=== PATIENT | male | born 1935 | race Two or more races ===

== ENCOUNTER 2017-04-24 15:20 | Emergency (ER) | payer MEDICARE, OTHER ==
[~2017-04-24] VITALS: Ht 167.6 cm; Wt 83.0 kg
[~2017-04-24 15:20] MED LIST: AMBIEN10 MG PO; ASPIR 8181 MG ORAL; BENADRYL25 MG ORAL; ENALAPRIL MALEA20 MG PO; GLUCOPHAGE500 MG PO; IBUPROFEN600 MG ORAL; INVOKANA100 MG PO; JANUVIA100 MG PO; METFORMIN HCL1000 M1 ORAL; NORCO 5-325 TA1 EACH PO; OMEPRAZOLE20 M2 ORAL; OXYBUTYNIN CHLOR5 M1 ORAL; PREDNISONE20 MG ORAL; RANITIDINE HCL150 MG ORAL; SIMVASTATIN10 MG PO; SOMA350 MG PO; VESICARE5 MG ORAL
[2017-04-24] MEDS ORDERED: Tetanus/Diptheria/Pertussis Vaccine 0.5ml Syr IM ONE (16:30)
[2017-04-24] MEDS ORDERED: Bacitracin Oint UD TOPIC ONE (16:30)
--- NOTE | 2017-04-24 16:34 | Emergency Room Report ---
History of Present Illness General Chief Complaint: Lower Extremity Injury Source: Patient Present Illness HPI 82-year-old male presents to the emergency department brought by daughter complaining of 10 out of 10 in severity left knee pain and swelling status post mechanical trip and fall earlier this morning. Patient denies loss of consciousness denies nausea vomiting or taking blood thinning medications. Patient states he has a history of diabetes, HTN and BPH. pt had hx of bilateral knee surgery denies knee replacement. Pt denies dizziness, cp, or palpations prior to fall. Patient denies bruising, however he reports open wound to the front of the left knee. Patient states pain is localized to the anterior and lateral aspect of the left knee. Patient states he does not know if he has instability as it hurts too much even put weight on his leg. Pain is exacerbated with walking. He denies neck or back pain.last tetanus Unknown. Denies numbness tingling or loss of sensation or gross motor movements of the extremities, incontinence of bowel or bladder. Denies CP, Palpitations, LOC, AMS , dizziness, Changes in Vision, Sensation, paresthesias, or a sudden severe headache. Allergies: Coded Allergies: No Known Allergies (Verified Allergy, Unknown, 06/17/07) Patient History Past Medical History: see triage record Past Surgical History: none Pertinent Family History: none Reviewed Nursing Documentation: PMH: Agreed, PSxH: Agreed Nursing Documentation-PM Past Medical History: No History, Except For Hx Cardiac Problems: Yes - high cholesterol Hx Hypertension: Yes Hx Diabetes: Yes - Type II DM Hx Cancer: No Hx Gastrointestinal Problems: Yes - Prostare problem Hx Neurological Problems: No Review of Systems All Other Systems: negative except mentioned in HPI Physical Exam Vital Signs Date Time Temp Pulse Resp B/P Pulse Ox O2 Delivery O2 Flow Rate FiO2 04/24/17 15:37 97.5 79 17 134/85 93 Room Air Sp02 EP Interpretation: reviewed, normal General Appearance: no apparent distress, alert, GCS 15, non-toxic Head: normocephalic, atraumatic Eyes: bilateral eye PERRL, bilateral eye normal inspection ENT: hearing grossly normal, normal voice Neck: full range of motion, no bony tend Respiratory: lungs clear, normal breath sounds, speaking full sentences Cardiovascular #1: regular rate, rhythm, no edema, normal capillary refill Cardiovascular #2: 2+ dorsalis pedis (R) - posterior tibialis 2+ and equal bilaterally, 2+ dorsalis pedis (L) Musculoskeletal: back normal, no calf tenderness, swelling - moderate swelling to the anterior medial aspect of the left knee, no bruises. Positive anterior drawer sign. , tender - ttp to the anterior and lateral left knee. Neurologic: alert, oriented x3, responsive, motor strength/tone normal, sensory intact Psychiatric: judgement/insight normal, memory normal, mood/affect normal Skin: normal color, no rash, warm/dry, well hydrated Medical Decision Making PA Attestation Dr. Branch is my supervising Physician whom patient management has been discussed with. Diagnostic Impression: Primary Impression: Abrasion Additional Impressions: Left knee sprain Qualified Codes: S83.92XA - Sprain of unspecified site of left knee, initial encounter Ligamentous laxity of left ankle ER Course Pt. presents to the ED c/o Left knee pain 10/10 in severity wit swelling, and abrasion s/p mechnical slip and fall POSITIVE ANTERIOR DRAWER SIGN Ddx considered but are not limited to Fracture, dislocation, contusion, Sprain/ Strain/Spasm, abrasion Vital signs: are WNL, pt. is afebrile H&PE are most consistent with musculoskeletal injury will perform imaging to r/ o fractures/dislocations. , Ligamentous injury suspected as pt. has positive anterior drawer sign. pt. NVI to the extremity. ORDERS: - X-ray Left knee 3 views - negative for fx, Dislocation, or significant soft tissue injury, per preliminary read in ED by Dr. Branch - interpretation is scribed by PA. ED INTERVENTIONS: - Mills PO - Tdap -Wound cleaning -Bacitracin is applied -knee immobilizer -pt. given walker. d/w pt. that he needs to follow up with ortho, and that advanced imaging such as MRI is warranted on an outpatient bases. d/w pt. to start by taking half dose of rx'd norco for severe pain, and if needed may take full dose. also d/w pt. that I will rx tylenol for mild pain, and that he can not take both medications at the same time, as both contain tylenol, reiterated with daughter who will be staying with him and both show verbal understanding and agreement with proposed treatment plan. d/w pt. to return to the ED with worsening or new symptoms. DISCHARGE: At this time pt. is stable for d/c to home. Will provide printed patient care instructions, and any necessary prescriptions. Care plan and follow up instructions have been discussed with the patient prior to discharge. Last Vital Signs Date Time Temp Pulse Resp B/P Pulse Ox O2 Delivery O2 Flow Rate FiO2 04/24/17 15:37 97.5 79 17 134/85 93 Room Air Disposition: HOME, SELF-CARE Condition: Stable Scripts Acetaminophen* (TYLENOL EXTRA STRENGTH*) 500 Mg Tablet 500 MG ORAL Q6H, #20 TAB 0 Refills Prov: Carey Antoine 04/24/17 Hydrocodone Bit/Acetaminophen 5-325* (NORCO 5-325*) 1 Each Tablet 1 TAB ORAL Q6H Y for For Pain, #9 TAB 0 Refills Prov: Carey Antoine 04/24/17 Referrals: NON PHYSICIAN (PCP) Patient Instructions: Combined Knee Ligament Sprain, Knee Sprain, [id number] Additional Instructions: Take medications as directed. Follow up with a SKE[employer] Y[employer] EXAMINER in 3-5 days, even if your symptoms have resolved. MRI is recommended. --Please review list of primary care clinics, if you do not already have a primary care provider Return sooner to ED if new symptoms occur, or current symptoms become worse. Do not drink alcohol, drive, or operate heavy machinery while taking Mills as this may cause drowsiness. - Please note that this Emergency Department Report was dictated using [employer] service technician technology software, occasionally this can lead to erroneous entry secondary to interpretation by the dictation equipment. Carey Antoine Apr 24, 2017 16:34
[2017-04-24] MEDS ORDERED: NORCO 5-325 TA1 EACH ORAL (16:57)
[2017-04-24] MEDS ORDERED: TYLENOL EXTRA500 MG ORAL (16:57)
--- NOTE | 2017-04-24 16:58 | Diagnostic Imaging Report ---
Indication: PAIN Technique: 3 views of the left knee Comparison: None Findings:There is degenerative narrowing of the medial and lateral and patellofemoral joint compartments. There is considerable degenerative proliferative change and multiple intra-articular loose bodies. No acute fractures. No dislocations. No suprapatellar effusion. Impression:Degenerative changes. Intra-articular loose bodies. No acute bony trauma
[2017-04-24] MEDS ORDERED: Norco 5mg/325mg tab ORAL ONE (17:00)
[2017-04-24 17:46] VITALS: BP 130/82
== END 2017-04-24 17:55 | disposition home or self-care (01) ==
LOC: EMR 16:10
DX: S83.92XA Sprain of unspecified site of left knee, initial encounter (principal); Z23 Encounter for immunization; M24.272 Disorder of ligament, left ankle; S80.212A Abrasion, left knee, initial encounter; W01.0XXA Fall on same level from slipping, tripping and stumbling without subsequent striking against object, initial encounter; Y93.9 Activity, unspecified; Y92.9 Unspecified place or not applicable; I10 Essential (primary) hypertension; E11.9 Type 2 diabetes mellitus without complications
CPT/HCPCS: 29530; 90471; 90715; 96372

== ENCOUNTER 2017-10-22 09:18 | Emergency (ER) | payer MEDICARE, OTHER ==
[~2017-10-22] VITALS: Ht 167.6 cm; Wt 83.5 kg
[~2017-10-22 09:18] MED LIST changes: +NORCO 5-325 TA1 EACH ORAL; +TYLENOL EXTRA500 MG ORAL
[2017-10-22] MEDS ORDERED: BENADRYL ALLERG25 M1 PO (09:58)
[2017-10-22] MEDS ORDERED: HydrOXYzine tab 25 MG TAB ORAL ONE (10:00)
[2017-10-22 10:07] VITALS: BP 149/79
[2017-10-22 10:21] VITALS: BP 149/79
--- NOTE | 2017-10-22 13:11 | Emergency Room Report ---
History of Present Illness General Chief Complaint: Skin Rash/Abscess Source: Patient Present Illness HPI 82-year-old male, no significant past medical history, presenting with intermittent itchy rash on arms and abdomen. No fever no chills. No throat swelling or shortness of breath. States that he has been taking loratadine without any relief Allergies: Coded Allergies: No Known Allergies (Verified Allergy, Unknown, 06/17/07) Patient History Past Medical History: see triage record Past Surgical History: none Pertinent Family History: none Reviewed Nursing Documentation: PMH: Agreed, PSxH: Agreed Nursing Documentation-PMH Hx Cardiac Problems: Yes - high cholesterol Hx Hypertension: Yes Hx Diabetes: Yes Hx Cancer: No Hx Gastrointestinal Problems: Yes - Prostare problem Hx Neurological Problems: No Review of Systems All Other Systems: negative except mentioned in HPI Physical Exam Vital Signs Date Time Temp Pulse Resp B/P (MAP) Pulse Ox O2 Delivery O2 Flow Rate FiO2 10/22/17 09:26 97.4 71 18 163/85 98 Room Air 97.3 Sp02 EP Interpretation: reviewed, normal General Appearance: normal inspection, well appearing, no apparent distress, alert, GCS 15, non-toxic Head: normocephalic, atraumatic Eyes: bilateral eye normal inspection, bilateral eye PERRL, bilateral eye EOMI ENT: normal ENT inspection, normal pharynx, normal voice, moist mucus membranes Neck: normal inspection, full range of motion, supple Respiratory: normal inspection, lungs clear, normal breath sounds, no respiratory distress, no retraction, no wheezing, speaking full sentences, chest symmetrical Cardiovascular #1: normal inspection, regular rate, rhythm, no edema, normal capillary refill Cardiovascular #2: 2+ radial (R), 2+ radial (L) Gastrointestinal: normal inspection, non tender, soft, non-distended, no guarding Genitourinary: no CVA tenderness Musculoskeletal: normal inspection, back normal, normal range of motion, non- tender Neurologic: normal inspection, alert, oriented x3, responsive, motor strength/ tone normal, sensory intact, normal gait, speech normal Psychiatric: normal inspection, judgement/insight normal, memory normal Skin: other - Very slight barely visible erythematous rash on arms, no rash in the interim webs of the fingers, does not appear to be scabies, nontender Medical Decision Making Diagnostic Impression: Primary Impression: Pruritic rash ER Course 82-year-old male with pruritus DDX: allergic rash Plan: Benadryl ER course: Patient has remained stable during ED stay. Feeling much better after medication Disposition: Patient is to be discharged to home. Prescriptions given are Benadryl Patient is instructed to follow up with their primary care doctor within 5 days. Strict return precautions discussed with patient such as fever, chills, SOB, nausea, vomiting, which may indicate severe illness. Patient verbalizes understanding and agrees with plan. Please note that this Emergency Department Report was dictated using [employer] Pharm[employer]contractor field hauling technology software, occasionally this can lead to erroneous entry secondary to interpretation by the dictation equipment Last Vital Signs Date Time Temp Pulse Resp B/P (MAP) Pulse Ox O2 Delivery O2 Flow Rate FiO2 10/22/17 10:21 97.6 74 19 149/79 100 Room Air 97.6 Disposition: HOME, SELF-CARE Condition: Improved Scripts Diphenhydramine Hcl (BENADRYL ALLERGY) 25 Mg Tablet 25 MG PO Q6H, #30 TAB Prov: Nancy Dent M.D. 10/22/17 Patient Instructions: Rash Additional Instructions: PLEASE FOLLOW UP WITH YOUR PRIMARY CARE DOCTOR Nancy Dent M.D. Oct 22, 2017 13:11
== END 2017-10-22 10:21 | disposition home or self-care (01) ==
LOC: EMR 09:40
DX: R21 Rash and other nonspecific skin eruption (principal); L29.9 Pruritus, unspecified; I10 Essential (primary) hypertension; E11.9 Type 2 diabetes mellitus without complications; E78.00 Pure hypercholesterolemia, unspecified
CPT/HCPCS: 99283

== ENCOUNTER 2017-11-28 10:36 | Emergency (ER) | payer MEDICARE, OTHER ==
[~2017-11-28] VITALS: Ht 167.6 cm; Wt 83.0 kg
[~2017-11-28 10:36] MED LIST changes: +BENADRYL ALLERG25 M1 PO
[2017-11-28] MEDS ORDERED: PREDNISONE20 MG ORAL (11:15)
[2017-11-28] MEDS ORDERED: ZANTAC150 MG ORAL (11:15)
[2017-11-28 11:18] VITALS: BP 133/82
[2017-11-28 11:25] VITALS: BP 133/82
--- NOTE | 2017-11-29 10:48 | Emergency Room Report ---
History of Present Illness General Chief Complaint: General Complaint Source: Patient Present Illness HPI Patient presents with complaints of diffuse itching Reports that this is been ongoing over the past 3-4 months Patient was seen here previously for similar complaint Since then he has recently seen his primary physician Has also seen a horticultural specialty grower Denies any change in medications he was given a cream however Denies any fevers He has seen the rash previously but none at this time Denies any abdominal pain denies any conjunctivitis Denies any pain in his joints Allergies: Coded Allergies: No Known Allergies (Verified Allergy, Unknown, 06/17/07) Patient History Past Medical History: see triage record Pertinent Family History: none Reviewed Nursing Documentation: PMH: Agreed; PSxH: Agreed Nursing Documentation-PMH Hx Cardiac Problems: Yes - high cholesterol Hx Hypertension: Yes Hx Diabetes: Yes Hx Cancer: No Hx Gastrointestinal Problems: Yes - Prostate problem Hx Neurological Problems: No Review of Systems All Other Systems: negative except mentioned in HPI Physical Exam Vital Signs Date Time Temp Pulse Resp B/P (MAP) Pulse Ox O2 Delivery O2 Flow Rate FiO2 11/28/17 10:44 98.0 80 21 161/72 97 Room Air 98.1 Sp02 EP Interpretation: reviewed, normal General Appearance: well appearing, no apparent distress Head: normocephalic, atraumatic Eyes: bilateral eye PERRL, bilateral eye EOMI ENT: hearing grossly normal, normal pharynx, TMs + canals normal, uvula midline Neck: full range of motion, supple, no meningismus, no bony tend Respiratory: lungs clear, normal breath sounds, no rhonchi, no respiratory distress, no retraction, no accessory muscle use Cardiovascular #1: normal peripheral pulses, regular rate, rhythm, no edema, no gallop, no JVD, no murmur Gastrointestinal: normal bowel sounds, non tender, soft, no mass, no organomegaly, non-distended, no guarding, no hernia, no pulsatile mass, no rebound Genitourinary: no CVA tenderness Musculoskeletal: normal inspection Neurologic: oriented x3, responsive, ambulance mechanic III-XII nml as tested, motor strength/ tone normal, sensory intact Psychiatric: mood/affect normal Skin: normal color, no rash, warm/dry, palpation normal Lymphatic: normal inspection, no adenopathy Medical Decision Making Diagnostic Impression: Primary Impression: Pruritic rash ER Course On patient's evaluation he is hemodynamically stable There is no obvious rash at this time Patient is on different medications Is being seen by dermatology Patient also has diabetes however was given low-dose steroids for a few days for the itching Given the lack of any obvious visual rash given the patient's chronicity after that he is appropriate for continued follow-up with dermatology and return with any changes Last Vital Signs Date Time Temp Pulse Resp B/P (MAP) Pulse Ox O2 Delivery O2 Flow Rate FiO2 11/28/17 11:25 98.6 81 16 133/82 99 Room Air 98.6 Status: unchanged Disposition: HOME, SELF-CARE Condition: Stable Scripts Ranitidine Hcl* (ZANTAC*) 150 Mg Tablet 150 MG ORAL DAILY, #20 TAB 0 Refills Prov: Nancy Hubbard DO 11/28/17 Prednisone* (PREDNISONE*) 20 Mg Tablet 20 MG ORAL DAILY, #5 TAB Prov: Nancy Hubbard DO 11/28/17 Referrals: EVERARDO LOUISE (PCP) Patient Instructions: Pruritus Additional Instructions: Patient is provided with the discharge instructions notified to follow up with primary doctor in the next 2-3 days otherwise return to the er with any worsening symptoms. Please note that this report is being documented using [employer] technology. This can lead to erroneous entry secondary to incorrect interpretation by the dictating instrument. Nancy Hubbard DO Nov 29, 2017 10:48
== END 2017-11-28 11:25 | disposition home or self-care (01) ==
LOC: EMR 10:55
DX: L29.9 Pruritus, unspecified (principal); I10 Essential (primary) hypertension; E11.9 Type 2 diabetes mellitus without complications
CPT/HCPCS: 99283

== ENCOUNTER 2018-03-25 09:00 | Outpatient (CLI) | payer MEDICARE, OTHER ==
[~2018-03-25] VITALS: Ht 165.1 cm; Wt 83.9 kg
[~2018-03-25 09:00] MED LIST changes: +ZANTAC150 MG ORAL
[2018-03-25 09:17] VITALS: BP 145/82
[2018-03-25] MEDS ORDERED: OMEPRAZOLE40 M1 ORAL (09:21)
[2018-03-25] MEDS ORDERED: CARAFATE1 G1 ORAL (09:21)
[2018-03-25] MEDS ORDERED: HYDROXYZINE HCL25 M1 PO (09:22)
--- NOTE | 2018-03-25 09:35 | GI Progress Note ---
Assessment/Plan Problems: (1) Weight loss ICD Codes: R63.4 - Abnormal weight loss SNOMED: 23554624, [id number] (2) Abdominal pain ICD Codes: R10.9 - Unspecified abdominal pain SNOMED: 76320161 (3) Nausea ICD Codes: R11.0 - Nausea SNOMED: 625701653 (4) muliple colon polyps (5) HP gastritis Status: stable Status Narrative Seen with Dr. Rivera. Assessment/Plan 4 lbs weight loss h/o of multiple colonic polyps EGD/colonoscopy scheduled 03-28-18. - CLD & (Nulytely/Suprep/Movi-Prep) prep instructions given and acknowledged by patient. - NPO @ CA day prior procedure explained. - labs to be drawn day of procedure >> CBC, CMP, CEA, CA19-9, Amylase/Lipase CTAP to be ordered for same time. The patient was seen and examined at bedside and all new and available data was reviewed in the patients chart. I agree with the above findings, impression and plan. (Patient seen earlier today. Signature stamp does not reflect patient encounter time.). - Nael Rivera MD Subjective Gastrointestinal/Abdominal: Reports: no symptoms Objective Last 24 Hour Vital Signs Date Time Temp Pulse Resp B/P (MAP) Pulse Ox O2 Delivery O2 Flow Rate FiO2 03/25/18 09:17 97.5 73 16 145/82 97 97.5 General Appearance: WD/WN, no apparent distress, alert Cardiovascular: normal rate Respiratory/Chest: normal breath sounds, no respiratory distress Abdominal Exam: normal bowel sounds, non tender, soft Extremities: normal range of motion, non-tender Ana Lilia Dalton CIRCULATING PROCESS INSPECTOR Mar 25, 2018 09:35
== END 2018-03-25 09:32 | disposition home or self-care (01) ==
LOC: PAN 09:00
DX: R63.4 Abnormal weight loss (principal); R10.9 Unspecified abdominal pain; R11.0 Nausea; K63.5 Polyp of colon
CPT/HCPCS: 99212

== ENCOUNTER 2018-03-28 07:39 | Day surgery (SDC) | payer MEDICARE, OTHER ==
[~2018-03-28] VITALS: Ht 167.6 cm; Wt 83.9 kg
[2018-03-28] VITALS (7 sets, daily range): BP systolic 94–141; BP diastolic 44–86
[~2018-03-28 07:39] MED LIST changes: +CARAFATE1 G1 ORAL; +HYDROXYZINE HCL25 M1 PO; +OMEPRAZOLE40 M1 ORAL
[2018-03-28 08:51] LABS: BASOPHILS % (AUTO) 1.3 % (0.0-2.0); EOSINOPHILS % (AUTO) 4.3 % (0.0-3.0); HEMATOCRIT 44.4 % (42.0-52.0); HEMOGLOBIN 15.5 G/DL (14.2-18.0); LYMPHOCYTES % (AUTO) 31.1 % (20.0-45.0); MEAN CORPUSCULAR VOLUME 91 FL (80-99); MONOCYTES % (AUTO) 10.1 % (1.0-10.0); NEUTROPHILS % (AUTO) 53.3 % (45.0-75.0); PLATELET COUNT 239 K/UL (150-450); RED BLOOD COUNT 4.88 M/UL (4.70-6.10); RED CELL DISTRIBUTION WIDTH 11.2 % (11.6-14.8); WHITE BLOOD COUNT 6.5 K/UL (4.8-10.8)
[2018-03-28 08:59] LABS: ANION GAP 6 mmol/L (5-15); BLOOD UREA NITROGEN 11 mg/dL (7-18); CALCIUM 9.1 MG/DL (8.5-10.1); CARBON DIOXIDE 30 MMOL/L (21-32); CHLORIDE 107 MMOL/L (98-107); CREATININE 0.9 MG/DL (0.55-1.30); POTASSIUM 4.1 MMOL/L (3.5-5.1); SODIUM 143 MMOL/L (136-145)
[2018-03-28 09:06] LABS: ALANINE AMINOTRANSFERASE 36 U/L (12-78); ALBUMIN 4.1 G/DL (3.4-5.0); ALBUMIN/GLOBULIN RATIO 1.2 (1.0-2.7); ALKALINE PHOSPHATASE 90 U/L (46-116); AMYLASE 70 U/L (25-115); ASPARTATE AMINO TRANSFERASE 35 U/L (15-37); BILIRUBIN,TOTAL 0.8 MG/DL (0.2-1.0)
--- NOTE | 2018-03-28 09:34 | Pre-Procedure Note/Attestation ---
Pre-Procedure Note/Attestation Complete Prior to Procedure Planned Procedure: not applicable Procedure Narrative: esophagogastroduodenoscopy and colonoscopy Indications for Procedure Pre-Operative Diagnosis: GERD, multiple colon polys Attestation I attest that I discussed the nature of the procedure; its benefits; risks and complications; and alternatives (and the risks and benefits of such alternatives ), prior to the procedure, with the patient (or the patient's legal vaccine customer representative). I attest that, if there was a reasonable possibility of needing a blood transfusion, the patient (or the patient's legal vaccine customer representative) was given the [facility] standardized written summary, pursuant to the Marek Fost[place] Blood Safety Act ([place] Health and Safety Code # 1645, as amended). I attest that I re-evaluated the patient just prior to the surgery and that there has been no change in the patient's H&P, except as documented below: Nael Rivera MD Mar 28, 2018 09:34
--- NOTE | 2018-03-28 09:35 | Short Stay Surgery H&P ---
History of Present Illness History of Present Illness Chief Complaint see recent office note HPI Osmar Horton is a 83 year old male who was admitted on for Multiple Colonic Polyps, Abdominal Pain, And Patient History Allergies: Coded Allergies: No Known Allergies (Verified Allergy, Unknown, 06/17/07) Medication History Scheduled Enalapril Maleate* (Enalapril Maleate*), 20 MG PO Q12HR, (Reported) Hydroxyzine Hcl (Hydroxyzine Hcl), 25 MG PO PRN, (Reported) Metformin Hcl* (Metformin Hcl*), 1,000 MG ORAL BID, (Reported) Omeprazole (Omeprazole), 40 MG ORAL DAILY, (Reported) Simvastatin (Zocor), 10 MG PO QHS, (Reported) Sucralfate* (Carafate*), 1 GM ORAL BID, (Reported) Discontinued Medications Acetaminophen* (Tylenol Extra Strength*), 500 MG ORAL Q6H Discontinued Reason: MD discontinued med Aspirin* (Aspir 81*), 81 MG ORAL DAILY, (Reported) Discontinued Reason: MD discontinued med Diphenhydramine Hcl (Benadryl Allergy), 25 MG PO Q6H Discontinued Reason: MD discontinued med Hydrocodone Bit/Acetaminophen 5-325* ([place] 5-325*), 1 TAB ORAL Q6H PRN for For Pain Discontinued Reason: MD discontinued med Prednisone* (Prednisone*), 20 MG ORAL DAILY Discontinued Reason: MD discontinued med Ranitidine Hcl* (Zantac*), 150 MG ORAL DAILY Discontinued Reason: MD discontinued med Physical Exam Vital Signs Last Vital Signs Date Time Temp Pulse Resp B/P (MAP) Pulse Ox O2 Delivery O2 Flow Rate FiO2 03/28/18 09:23 97.5 68 20 140/86 (104) 97 97.5 03/28/18 09:22 Room Air Labs Laboratory Tests Test 03/28/18 08:30 White Blood Count 6.5 K/UL (4.8-10.8) Red Blood Count 4.88 M/UL (4.70-6.10) Hemoglobin 15.5 G/DL (14.2-18.0) Hematocrit 44.4 % (42.0-52.0) Mean Corpuscular Volume 91 FL (80-99) Mean Corpuscular Hemoglobin 31.7 PG (27.0-31.0) H Mean Corpuscular Hemoglobin Concent 34.9 G/DL (32.0-36.0) Red Cell Distribution Width 11.2 % (11.6-14.8) L Platelet Count 239 K/UL (150-450) Mean Platelet Volume 7.1 FL (6.5-10.1) Neutrophils (%) (Auto) 53.3 % (45.0-75.0) Lymphocytes (%) (Auto) 31.1 % (20.0-45.0) Monocytes (%) (Auto) 10.1 % (1.0-10.0) H Eosinophils (%) (Auto) 4.3 % (0.0-3.0) H Basophils (%) (Auto) 1.3 % (0.0-2.0) Sodium Level 143 MMOL/L (136-145) Potassium Level 4.1 MMOL/L (3.5-5.1) Chloride Level 107 MMOL/L (98-107) Carbon Dioxide Level 30 MMOL/L (21-32) Anion Gap 6 mmol/L (5-15) Blood Urea Nitrogen 11 mg/dL (7-18) Creatinine 0.9 MG/DL (0.55-1.30) Estimat Glomerular Filtration Rate mL/min (>60) Glucose Level 165 MG/DL (74-106) H Calcium Level 9.1 MG/DL (8.5-10.1) Total Bilirubin 0.8 MG/DL (0.2-1.0) Aspartate Amino Transf (AST/SGOT) 35 U/L (15-37) Alanine Aminotransferase (ALT/SGPT) 36 U/L (12-78) Alkaline Phosphatase 90 U/L (46-116) Total Protein 7.6 G/DL (6.4-8.2) Albumin 4.1 G/DL (3.4-5.0) Globulin 3.5 g/dL Albumin/Globulin Ratio 1.2 (1.0-2.7) Amylase Level 70 U/L (25-115) Lipase 201 U/L (73-393) Carcinoembryonic Antigen Pending CA 19-9 Antigen Pending Plan Attestation Are the patient's medical conditions optimized for surgery? Nael Rivera MD Mar 28, 2018 09:35
[2018-03-28] MEDS ORDERED: LR 1000ml 1,000 ML IVLG SCH (09:52)
[2018-03-28] MEDS ORDERED: fentaNYL 100 mcg/2 mL IV PRN (10:00)
[2018-03-28] MEDS ORDERED: Metoclopramide 10mg/2ml Inj IVP PRN (10:00)
[2018-03-28] MEDS ORDERED: Norco 5mg/325mg tab ORAL PRN (10:00)
[2018-03-28] MEDS ORDERED: Labetalol 5mg/ml 20ml vial IV PRN (10:00)
[2018-03-28] MEDS ORDERED: Hydromorphone 0.5mg/0.5ml inj IVP PRN (10:00)
[2018-03-28] MEDS ORDERED: Atropine Inj 1mg/10ml Syr IV PRN (10:00)
[2018-03-28] MEDS ORDERED: Propofol 200mg/20ml IV ONE (10:00)
[2018-03-28] MEDS ORDERED: Midazolam 2mg/2ml Inj IVP PRN (10:00)
[2018-03-28] MEDS ORDERED: Lidocaine 1% MPF 10mg/ml 5ml ONE (10:00)
[2018-03-28] MEDS ORDERED: oxyCODONE HCL/Acetaminophen 5/325mg ORAL PRN (10:00)
[2018-03-28] MEDS ORDERED: DiphenhydrAMINE 50mg/ml Inj IVP PRN (10:00)
[2018-03-28] MEDS ORDERED: HYDROcodone/Acetamin 7.5/325 tab ORAL PRN (10:00)
[2018-03-28] MEDS ORDERED: LORazepam Inj 2mg/ml 1ml IV PRN (10:00)
[2018-03-28] MEDS ORDERED: LR 1000ml ONE (10:00)
[2018-03-28] MEDS ORDERED: Midazolam 2mg/2ml Inj ONE (10:00)
[2018-03-28] MEDS ORDERED: Ketorolac 30mg Inj IV PRN ×2 (10:00)
--- NOTE | 2018-03-28 10:00 | Anethesia Preoperative Eval ---
Anesthesia Pre-op PMH/ROS General Date of Evaluation: Mar 28, 2018 Time of Evaluation: 09:54 Anesthesiologist: Ron ASA Score: ASA 3 Mallampati Score Class I : Soft palate, uvula, fauces, pillars visible Class II: Soft palate, uvula, fauces visible Class III: Soft palate, base of uvula visible Class IV: Only hard plate visible Mallampati Classification: Class II Surgeon: Nicole Diagnosis: Abd Pain Surgical Procedure: EGD/Colonoscopy Anesthesia History: none Family History: no anesthesia problems Allergies: Coded Allergies: No Known Allergies (Verified Allergy, Unknown, 06/17/07) Medications: see eMAR Past Medical History Cardiovascular: Reports: HTN, other - HL Gastrointestinal/Genitourinary: Reports: GERD - Diverticulitis, other - UTI, BPH Endocrine: Reports: DM HEENT: Reports: cataract (L), cataract (R) PSxH Narrative: Cat Ext IOL Bilateral, L Knee Sx Anesthesia Pre-op Phys. Exam Physician Exam Last Vital Signs Date Time Temp Pulse Resp B/P (MAP) Pulse Ox O2 Delivery O2 Flow Rate FiO2 03/28/18 09:23 97.5 68 20 140/86 (104) 97 97.5 03/28/18 09:22 Room Air Constitutional: NAD Neurologic: CN 2-12 intact Cardiovascular: RRR Respiratory: CTA Gastrointestinal: S/NT/ND Airway Exam Mallampati Score: Class II MO: limited ROM: limited Teeth: missing, intact, broken Anesthesia Pre-op A/P Labs Hematology Test 03/28/18 08:30 White Blood Count 6.5 K/UL (4.8-10.8) Red Blood Count 4.88 M/UL (4.70-6.10) Hemoglobin 15.5 G/DL (14.2-18.0) Hematocrit 44.4 % (42.0-52.0) Mean Corpuscular Volume 91 FL (80-99) Mean Corpuscular Hemoglobin 31.7 PG (27.0-31.0) H Mean Corpuscular Hemoglobin Concent 34.9 G/DL (32.0-36.0) Red Cell Distribution Width 11.2 % (11.6-14.8) L Platelet Count 239 K/UL (150-450) Mean Platelet Volume 7.1 FL (6.5-10.1) Neutrophils (%) (Auto) 53.3 % (45.0-75.0) Lymphocytes (%) (Auto) 31.1 % (20.0-45.0) Monocytes (%) (Auto) 10.1 % (1.0-10.0) H Eosinophils (%) (Auto) 4.3 % (0.0-3.0) H Basophils (%) (Auto) 1.3 % (0.0-2.0) Chemistry Test 03/28/18 08:30 Sodium Level 143 MMOL/L (136-145) Potassium Level 4.1 MMOL/L (3.5-5.1) Chloride Level 107 MMOL/L (98-107) Carbon Dioxide Level 30 MMOL/L (21-32) Anion Gap 6 mmol/L (5-15) Blood Urea Nitrogen 11 mg/dL (7-18) Creatinine 0.9 MG/DL (0.55-1.30) Estimat Glomerular Filtration Rate mL/min (>60) Glucose Level 165 MG/DL (74-106) H Calcium Level 9.1 MG/DL (8.5-10.1) Total Bilirubin 0.8 MG/DL (0.2-1.0) Aspartate Amino Transf (AST/SGOT) 35 U/L (15-37) Alanine Aminotransferase (ALT/SGPT) 36 U/L (12-78) Alkaline Phosphatase 90 U/L (46-116) Total Protein 7.6 G/DL (6.4-8.2) Albumin 4.1 G/DL (3.4-5.0) Globulin 3.5 g/dL Albumin/Globulin Ratio 1.2 (1.0-2.7) Amylase Level 70 U/L (25-115) Lipase 201 U/L (73-393) Carcinoembryonic Antigen Pending CA 19-9 Antigen Pending Studies Pre-op Studies: EKG - LVH Risk Assessment & Plan Assessment: ASA 3 Plan: GA Status Change Before Surgery: Brad Terrazas MD Mar 28, 2018 10:00
--- NOTE | 2018-03-28 10:08 | Immediate Post-Op Evaluation ---
Immediate Post-Op Evalulation Immediate Post-Op Evalulation Procedure: EGD/Colonoscopy Date of Evaluation: Mar 28, 2018 Time of Evaluation: 10:54 IV Fluids: 300 NS Blood Products: 0 Estimated Blood Loss: 1 Urinary Output: 0 Blood Pressure Systolic: 76 Blood Pressure Diastolic: 46 Pulse Rate: 67 Respiratory Rate: 16 O2 Sat by Pulse Oximetry: 100 Temperature (Fahrenheit): 97.6 Pain Score (1-10): 2 Nausea: No Vomiting: No Complications 0 Patient Status: awake, reacts, patent, none Hydration Status: adequate Brad Velasquez MD Mar 28, 2018 10:08
--- NOTE | 2018-03-28 10:09 | 48 Hour Post Anesthesia Eval ---
Post Anesthesia Evaluation Procedure: EGD/Colonoscopy Date of Evaluation: Mar 28, 2018 Time of Evaluation: 13:06 Blood Pressure Systolic: 126 0: 78 Pulse Rate: 62 Respiratory Rate: 18 Temperature (Fahrenheit): 97.7 O2 Sat by Pulse Oximetry: 100 Airway: patent Nausea: No Vomiting: No Pain Intensity: 1 Hydration Status: adequate Cardiopulmonary Status: Stable Mental Status/LOC: patient returned to baseline Follow-up Care/Observations: 00 Post-Anesthesia Complications: 0 Follow-up care needed: ready to discharge Brad Velasquez MD Mar 28, 2018 10:09
--- NOTE | 2018-03-28 10:36 | Endoscopy Procedure Note ---
Endoscopy Procedure Note General Indication for Procedure: wt loss. GERD, multiple colon polyps Procedures Performed: EGD, colonoscopy Operative Findings/Diagnosis: 2 polyp Specimen: yes Pt Tolerated Procedure Well: Yes Estimated Blood Loss: none Anesthesia Anesthesiologist: saad Anesthesia: MAC Inserted Devices Implant(s) used?: No Quality Quality of Bowel Preparation: Good Did scope reach the cecum?: Yes Was there any complications?: No GI Core Measures 50 yrs or older w/o bx or poly: No 10yrs. F/U not recommended: Yes If not recommended, why?: Above average risk 10 yrs. F/U needed: Yes 18 years or older w/prev. colo: Yes <3yrs. since last colonoscopy: No Nael Rivera MD Mar 28, 2018 10:36
--- NOTE | 2018-03-28 11:45 | Procedure Note ---
DATE OF PROCEDURE: 03/28/2018 SURGEON: Nael Rivera M.D. ANESTHESIOLOGIST: Dr. Velasquez. REFERRING PHYSICIAN: Erwin Calderon M.D. PROCEDURE: Upper endoscopy with biopsy and colonoscopy with biopsy. ANESTHESIA: Per Dr. Velaqsuez. INSTRUMENT: Olympus adult flexible upper endoscope and colonoscope. The procedure, risks, benefits, and possible consequences, including hemorrhage, aspiration, perforation and infection, and alternative treatments, were explained to the patient/legal guardian by Dr. Nael Rivera and the patient/legal guardian understood and accepted these risks. INDICATION: Weight loss, history of colonic polyps, GERD. DESCRIPTION OF PROCEDURE: After informed consent was obtained and the patient was adequately sedated, Olympus upper scope was advanced from the mouth into the second portion of the duodenum and retroflexion was performed in the stomach. The patient had diffuse gastritis. Random biopsy from antrum was obtained to rule out H. pylori infection. Otherwise, the rest of the upper endoscopic examination grossly looked within normal limits. At this time, the upper endoscope was retrieved. The patient was turned over for colonoscopy. First, rectal exam was performed which was positive for internal hemorrhoids. Then, the scope was advanced from the rectum into the cecum documented by the appendiceal orifice, ileocecal valve, and right upper quadrant palpation. Quality of prep was good. The patient had two polyps, one in the rectum and one in transverse colon, both were small, removed with the cold biopsy forceps technique. The rest of the exam grossly looked within normal limits. Retroflexion of rectum showed evidence of internal hemorrhoids. SUMMARY OF FINDINGS: 1. Gastritis, status post biopsy. 2. Two colonic polyps removed, see above for details. 3. Internal hemorrhoids. RECOMMENDATIONS: 1. Follow up biopsy results and treat accordingly. 2. The patient will get a CT scan today for workup of weight loss. I want to thank Dr. Calderon for this kind referral. Nael Rivera M.D. DR: Stefan JOB#: [id number] CC: Erwin Calderon M.D.; Fax#: [phone]
--- NOTE | 2018-03-28 13:42 | Diagnostic Imaging Report ---
Clinical Indication: Chronic abdominal pain Technique: No oral contrast utilized, per emergency room physician request IV administration nonionic contrast. Venous phase spiral acquisition obtained through the abdomen and pelvis. Multiplanar reconstructions were generated. Total dose length product 852.25 mGycm. CTDIvol(s) 17.49 mGy. Dose reduction achieved using automated exposure control Comparison: none Findings: The appendix is normal. No evidence of diverticulosis or diverticulitis. No small bowel distention. No small bowel wall thickening. No free or loculated intraperitoneal air or fluid. Distal esophagus, stomach, duodenum are unremarkable. There is a small fat-containing right inguinal hernia. The gallbladder is surgically absent. The liver, bile ducts, pancreas, spleen, adrenals kidneys are unremarkable. No retroperitoneal or mesenteric mass or adenopathy. No pelvic mass or adenopathy. The included lung bases are clear. The bones demonstrate degenerative spondylosis changes. There is mild lumbar scoliotic deformity. There are bilateral iliac venous stents in place. The iliac veins are not well opacified, so patency is indeterminate but suspect these are patent. Impression: No acute abnormality Evidence of prior cholecystectomy Other findings as noted, including bilateral iliac stents, degenerative spondylosis, lumbar scoliotic deformity, small fat-containing right inguinal hernia The CT scanner at [facility] is accredited by the [employer] and the scans are performed using protocols designed to limit radiation exposure to as low as reasonably achievable to attain images of sufficient resolution adequate for diagnostic evaluation.
--- NOTE | 2018-03-28 17:06 | Cardiology Report ---
APPROVED REPORT EKG Measurement Heart [id number] Normal sinus rhythm Left axis deviation Abnormal ECG
== END 2018-03-28 13:25 | disposition home or self-care (01) ==
LOC: GAS 07:39
DX: K29.50 Unspecified chronic gastritis without bleeding (principal); K21.9 Gastro-esophageal reflux disease without esophagitis; D12.3 Benign neoplasm of transverse colon; D12.8 Benign neoplasm of rectum; K64.8 Other hemorrhoids; Z86.010 Personal history of colon polyps; I10 Essential (primary) hypertension; N40.0 Benign prostatic hyperplasia without lower urinary tract symptoms; E11.9 Type 2 diabetes mellitus without complications; E78.5 Hyperlipidemia, unspecified; Z79.84 Long term (current) use of oral hypoglycemic drugs
CPT/HCPCS: 36415; 43239; 45380; 74177; 80053; 82150; 82378; 82962; 83690; 85025; 93005; J2250; J2704; J7120; Q9967; 94003; 94150

== ENCOUNTER 2018-04-10 13:08 | Outpatient (CLI) | payer MEDICARE, OTHER ==
--- NOTE | 2018-04-10 16:00 | GI Progress Note ---
Assessment/Plan Problems: (1) HP gastritis (2) muliple colon polyps (3) Nausea ICD Codes: R11.0 - Nausea SNOMED: 776873871 (4) Abdominal pain ICD Codes: R10.9 - Unspecified abdominal pain SNOMED: 65023643 (5) Weight loss ICD Codes: R63.4 - Abnormal weight loss SNOMED: 62149206, [id number] Status: stable Status Narrative Seen with Dr. Rivera. Assessment/Plan SUMMARY OF FINDINGS reviewed with patient: 1. Gastritis, status post biopsy. >> negative 2. Two colonic polyps removed, see above for details. 3. Internal hemorrhoids. RECOMMENDATIONS: The patient will get a CT scan today for workup of weight loss. >> negative RTC prn repeat colonoscopy x 5 years Subjective Gastrointestinal/Abdominal: Reports: no symptoms Objective General Appearance: WD/WN, no apparent distress, alert Cardiovascular: normal rate Respiratory/Chest: normal breath sounds, no respiratory distress Abdominal Exam: normal bowel sounds, non tender, soft Extremities: normal range of motion, non-tender Ana Lilia Dalton NP Apr 10, 2018 16:00
== END 2018-04-10 13:40 | disposition home or self-care (01) ==
LOC: PAN 13:08
DX: K29.70 Gastritis, unspecified, without bleeding (principal); B96.81 Helicobacter pylori [H. pylori] as the cause of diseases classified elsewhere; Z86.010 Personal history of colon polyps; R11.0 Nausea; R10.9 Unspecified abdominal pain; R63.4 Abnormal weight loss; K64.8 Other hemorrhoids
CPT/HCPCS: G0463

== ENCOUNTER 2018-06-13 02:06 | Emergency (ER) | payer MEDICARE, OTHER ==
[~2018-06-13] VITALS: Ht 167.6 cm; Wt 81.6 kg
[2018-06-13] MEDS ORDERED: ASPIRIN-LOW81 MG ORAL (02:21)
[2018-06-13] MEDS ORDERED: HYDROCHLOROTH12.5 M2 ORAL (02:21)
--- NOTE | 2018-06-13 02:24 | Emergency Room Report ---
History of Present Illness General Chief Complaint: Hypertension Source: Patient Present Illness HPI Is an 83-year-old male with history hypertension. He presents with chief complaint of vomiting and high blood pressure. Onset tonight. He has been vomiting for the last several hours. No diarrhea. No syncope. No chest pain. [place] lightheaded when he vomits. was sick with similar thing last week. Denies any other complaint. He came in because his blood pressure was high at home. No previous abdominal surgery. Allergies: Coded Allergies: No Known Allergies (Verified Allergy, Unknown, 06/17/07) Patient History Past Medical History: see triage record, old chart reviewed, HTN Past Surgical History: other Pertinent Family History: none Social History: Denies: smoking Immunizations: other Reviewed Nursing Documentation: PMH: Agreed; PSxH: Agreed Nursing Documentation-PMH Past Medical History: No History, Except For Hx Cardiac Problems: Yes - high cholesterol Hx Hypertension: Yes Hx Diabetes: Yes Hx Cancer: No Hx Gastrointestinal Problems: Yes Hx Neurological Problems: No Review of Systems Eye: Denies: eye pain, blurred vision ENT: Denies: ear pain, nose congestion, throat swelling Respiratory: Denies: cough, shortness of breath Cardiovascular: Denies: chest pain, palpitations Gastrointestinal: Reports: nausea, vomiting; Denies: abdominal pain, diarrhea Musculoskeletal: Denies: back pain, joint pain Skin: Denies: rash Neurological: Denies: headache, numbness Endocrine: Denies: increased thirst, increased urine Hematologic/Lymphatic: Denies: easy bruising All Other Systems: negative except mentioned in HPI Physical Exam Vital Signs Date Time Temp Pulse Resp B/P (MAP) Pulse Ox O2 Delivery O2 Flow Rate FiO2 06/13/18 02:12 98.6 77 16 184/89 95 Room Air 98.6 vitals with high blood pressure Sp02 EP Interpretation: reviewed, normal General Appearance: well appearing, no apparent distress, alert Head: normocephalic, atraumatic Eyes: bilateral eye PERRL, bilateral eye EOMI ENT: hearing grossly normal, normal pharynx Neck: full range of motion, supple, no meningismus Respiratory: chest non-tender, lungs clear, normal breath sounds Cardiovascular #1: regular rate, rhythm, no murmur Gastrointestinal: non tender, no mass, no organomegaly, no bruit, non-distended , abnormal bowel sounds - hyperactive, gurgling bowel sounds Musculoskeletal: back normal, gait/station normal, normal range of motion Neurologic: alert, oriented x3 Psychiatric: mood/affect normal Skin: warm/dry Medical Decision Making Diagnostic Impression: Primary Impression: Abdominal pain Qualified Codes: R10.84 - Generalized abdominal pain Additional Impressions: Hypertension Qualified Codes: I10 - Essential (primary) hypertension Nausea and vomiting in adult ER Course Patient presents with nausea and vomiting. This probably cause his blood pressure to go up. Blood pressure much improved without any intervention. No evidence of any obstruction. Most likely early gastroenteritis. No evidence of any acute abdomen or obstruction. We'll discharge home. Lab Results Impression labs unremarkable except for hyperglycemia CT/MRI/US Diagnostic Results CT/MRI/US Diagnostic Results : Imaging Test Ordered: CT abdomen and pelvis Impression negative per radiologist Last Vital Signs Date Time Temp Pulse Resp B/P (MAP) Pulse Ox O2 Delivery O2 Flow Rate FiO2 06/13/18 02:12 98.6 77 16 184/89 95 Room Air 98.6 Status: improved Disposition: HOME, SELF-CARE Condition: Stable Scripts Ondansetron (Zofran) 4 Mg Tablet 4 MG ORAL Q6H PRN for Nausea & Vomiting, #10 TAB 0 Refills Prov: Dariusz Dalton MD 06/13/18 Additional Instructions: Follow-up with your doctor in 2-3 days. Return if worse. Dariusz Dalton MD Jun 13, 2018 02:24
[2018-06-13 02:25] VITALS: BP 147/57
[2018-06-13 03:18] LABS: ANION GAP 8 mmol/L (5-15); BASOPHILS % (AUTO) 1.1 % (0.0-2.0); BLOOD UREA NITROGEN 20 mg/dL (7-18); CALCIUM 9.3 MG/DL (8.5-10.1); CARBON DIOXIDE 27 MMOL/L (21-32); CHLORIDE 101 MMOL/L (98-107); EOSINOPHILS % (AUTO) 4.2 % (0.0-3.0); HEMATOCRIT 45.1 % (42.0-52.0); HEMOGLOBIN 15.6 G/DL (14.2-18.0); LYMPHOCYTES % (AUTO) 32.2 % (20.0-45.0); MEAN CORPUSCULAR VOLUME 90 FL (80-99); MONOCYTES % (AUTO) 12.8 % (1.0-10.0); NEUTROPHILS % (AUTO) 49.7 % (45.0-75.0); PLATELET COUNT 227 K/UL (150-450); RED BLOOD COUNT 4.99 M/UL (4.70-6.10); RED CELL DISTRIBUTION WIDTH 10.8 % (11.6-14.8); SODIUM 136 MMOL/L (136-145); WHITE BLOOD COUNT 7.7 K/UL (4.8-10.8)
[2018-06-13 03:21] VITALS: BP 146/73
[2018-06-13 03:22] LABS: ALANINE AMINOTRANSFERASE 24 U/L (12-78); ALBUMIN 4.3 G/DL (3.4-5.0); ALBUMIN/GLOBULIN RATIO 1.2 (1.0-2.7); ALKALINE PHOSPHATASE 125 U/L (46-116); APPEARANCE,URINE CLEAR; ASPARTATE AMINO TRANSFERASE 20 U/L (15-37); BILIRUBIN, URINE NEGATIVE (NEGATIVE); COLOR,URINE PALE YELLOW; GLUCOSE, URINE (UA) NEGATIVE (NEGATIVE); KETONES,URINE NEGATIVE (NEGATIVE); LEUKOCYTE ESTERASE ,URINE NEGATIVE (NEGATIVE); NITRITE,URINE NEGATIVE (NEGATIVE); PH,URINE 5 (4.5-8.0); PROTEIN,URINE NEGATIVE (NEGATIVE); UROBILINOGEN,URINE NORMAL MG/DL (0.0-1.0)
[2018-06-13] MEDS ORDERED: ZOFRAN4 MG ORAL (03:48)
[2018-06-13 04:15] VITALS: BP 145/69
--- NOTE | 2018-06-13 09:44 | Diagnostic Imaging Report ---
Indication: Abdominal pain for one day Technique: Spiral acquisitions obtained through the abdomen and pelvis. No oral contrast utilized, per emergency room physician request No IV contrast utilized, per referring physician request.. Multiplanar reconstructions were generated. Total dose length product 962.44 mGycm. CTDIvol(s) 17.49 mGy. Dose reduction achieved using automated exposure control Comparison: 03/28/2018 contrast study Findings: There is some image degradation due to respiratory motion artifact. The appendix is normal. No evidence of colonic diverticulosis or diverticulitis. Small bowel loops are nondilated, although there is evidence of some small bowel feces suggesting stasis of contents. No free or loculated intraperitoneal gas or fluid is evident. The distal esophagus, stomach, duodenum are unremarkable. The left hemidiaphragm is elevated. There is a small fat-containing right inguinal hernia. The gallbladder is surgically absent. Lack of IV contrast limits assessment of solid organs. The liver, bile ducts, pancreas, spleen, adrenals are all grossly unremarkable. No renal mass or calculus demonstrated. There is some stranding of the bilateral perinephric fat, also evident previously. No pelvic mass or adenopathy. The bladder is nondistended. There are stents in the bilateral common and right external iliac veins. The included lung bases demonstrate some posterior dependent atelectatic changes bilaterally. There are degenerative changes of the lumbar spine and slight posterior offset of L4 on L5. There is no significant interim change Impression: Small bowel loops containing small bowel feces suggesting stasis of contents, nonspecific No acute process otherwise Surgically absent gallbladder Nonspecific stranding of the bilateral perinephric fat, unchanged Bilateral iliac venous stents Incidental findings of posterior dependent pulmonary atelectatic changes, degenerative spondylosis, elevated left hemidiaphragm, small fat-containing right inguinal hernia This agrees with the preliminary interpretation provided overnight by [employer] teleradiology service. The CT scanner at [facility] is accredited by the [employer] and the scans are performed using protocols designed to limit radiation exposure to as low as reasonably achievable to attain images of sufficient resolution adequate for diagnostic evaluation.
== END 2018-06-13 04:15 | disposition home or self-care (01) ==
LOC: EMR 02:30
DX: R11.2 Nausea with vomiting, unspecified (principal); R10.84 Generalized abdominal pain; I10 Essential (primary) hypertension; E11.9 Type 2 diabetes mellitus without complications
CPT/HCPCS: 36415; 74176; 80053; 81003; 83690; 85025; 96361; 96374; 96375; 99284; J0360; J2405

== ENCOUNTER → 2018-10-02 | Outpatient (CLI) | payer MEDICARE, OTHER ==
[~2018-10-02] MED LIST changes: +ASPIRIN-LOW81 MG ORAL; +HYDROCHLOROTH12.5 M2 ORAL; +ZOFRAN4 MG ORAL
--- NOTE | 2018-10-02 12:00 | Diagnostic Imaging Report ---
Indication: Abdominal pain Technique: Flores-scale and duplex images of the upper abdomen were obtained. Doppler interrogation of the pancreatic and hepatic vessels Comparison: 04/26/2008. Reference also made to abdomen pelvis CT 06/13/2018 Findings: Gallbladder is surgically absent. This is a new finding since the prior sonogram but was described on the recent CT. Common bile duct measures 6 mm in diameter. No intrahepatic biliary ductal dilatation. Liver demonstrates slightly increased echogenicity, no focal abnormality. Portal vein and hepatic veins are patent. Pancreas is unremarkable. Spleen is unremarkable. Left kidney measures 10.3 cm in length. Right kidney measures 9.8 cm length. Both kidneys demonstrate normal echogenicity. There is no hydronephrosis. No focal abnormality . Non-aneurysmal abdominal aorta . Impression: Surgically absent gallbladder. Negative for dilated bile ducts Equivocally slightly increased hepatic echogenicity, if real could indicate diffuse hepatocellular disease such as fatty change
== END | disposition home or self-care (01) ==
LOC: ULS 09:08
DX: R10.9 Unspecified abdominal pain (principal); Z90.49 Acquired absence of other specified parts of digestive tract
CPT/HCPCS: 76700

== ENCOUNTER 2018-10-28 08:58 | Outpatient (CLI) | payer MEDICARE, OTHER ==
--- NOTE | 2018-10-28 09:35 | General Progress Note ---
Assessment/Plan Problem List: (1) HP gastritis (2) Abdominal pain ICD Codes: R10.9 - Unspecified abdominal pain SNOMED: 53821194 (3) muliple colon polyps (4) Weight loss ICD Codes: R63.4 - Abnormal weight loss SNOMED: 94802103, 891523696 Assessment/Plan ct, us labs reviewed no acute finding topical hydrocortisone cream prn rtc 3 months Subjective ROS Limited/Unobtainable: Yes Allergies: Coded Allergies: No Known Allergies (Verified Allergy, Unknown, 06/17/07) Subjective c/o skin itchiness Objective General Appearance: alert EENT: normal ENT inspection Neck: supple Cardiovascular: normal rate Respiratory/Chest: lungs clear Abdomen: normal bowel sounds, non tender, soft Extremities: non-tender Nael Rivera MD Oct 28, 2018 09:35
[2018-10-28 09:45] VITALS: BP 114/78
== END 2018-10-28 09:28 | disposition home or self-care (01) ==
LOC: PAN 08:58
DX: B96.81 Helicobacter pylori [H. pylori] as the cause of diseases classified elsewhere (principal); K29.60 Other gastritis without bleeding; K63.5 Polyp of colon; R63.4 Abnormal weight loss
CPT/HCPCS: 99212

== ENCOUNTER 2019-06-17 15:04 | Emergency (ER) | payer MEDICARE, OTHER ==
[~2019-06-17] VITALS: Ht 167.6 cm; Wt 81.6 kg
[2019-06-17] MEDS ORDERED: DITROPAN10 MG ORAL (15:23)
[2019-06-17] MEDS ORDERED: MECLIZINE HCL12.5 MG ORAL (15:23)
[2019-06-17] MEDS ORDERED: DiphenhydrAMINE 50mg/ml Inj IVP ONE (15:30)
[2019-06-17] MEDS ORDERED: Dexamethasone 4mg/ml vial IVP ONE (15:30)
--- NOTE | 2019-06-17 15:57 | NUR ---
ED Nurse Note: blood and urine sent
--- NOTE | 2019-06-17 16:08 | Diagnostic Imaging Report ---
Indication: Dyspnea Comparison: 06/17/2007 A single view chest radiograph was obtained. Findings: Left hemidiaphragm is elevated. Lung volumes are low bilaterally. No definite infiltrate identified. Pulmonary vascularity is within normal limits. Heart size is probably normal. Bones are osteopenic. IMPRESSION: Elevated left hemidiaphragm. No acute disease within the chest identified.
[2019-06-17 16:22] LABS: APPEARANCE,URINE CLEAR; BILIRUBIN, URINE NEGATIVE (NEGATIVE); GLUCOSE, URINE (UA) NEGATIVE (NEGATIVE); KETONES,URINE 1+ (NEGATIVE); LEUKOCYTE ESTERASE ,URINE NEGATIVE (NEGATIVE); NITRITE,URINE NEGATIVE (NEGATIVE); PH,URINE 5 (4.5-8.0); PROTEIN,URINE NEGATIVE (NEGATIVE); UROBILINOGEN,URINE NORMAL MG/DL (0.0-1.0)
[2019-06-17 16:24] VITALS: BP 124/65
[2019-06-17 16:24] LABS: COLOR,URINE YELLOW
[2019-06-17 16:28] LABS: BASOPHILS % (AUTO) 1.6 % (0.0-2.0); EOSINOPHILS % (AUTO) 2.9 % (0.0-3.0); HEMATOCRIT 42.2 % (42.0-52.0); HEMOGLOBIN 14.6 G/DL (14.2-18.0); LYMPHOCYTES % (AUTO) 23.8 % (20.0-45.0); MEAN CORPUSCULAR VOLUME 92 FL (80-99); MONOCYTES % (AUTO) 8.4 % (1.0-10.0); NEUTROPHILS % (AUTO) 63.3 % (45.0-75.0); PLATELET COUNT 256 K/UL (150-450); RED BLOOD COUNT 4.58 M/UL (4.70-6.10); RED CELL DISTRIBUTION WIDTH 10.3 % (11.6-14.8); WHITE BLOOD COUNT 7.9 K/UL (4.8-10.8)
[2019-06-17 16:29] LABS: ANION GAP 11 mmol/L (5-15); BLOOD UREA NITROGEN 14 mg/dL (7-18); CALCIUM 9.2 MG/DL (8.5-10.1); CARBON DIOXIDE 24 MMOL/L (21-32); CHLORIDE 106 MMOL/L (98-107); POTASSIUM 3.9 MMOL/L (3.5-5.1); SODIUM 141 MMOL/L (136-145)
--- NOTE | 2019-06-17 16:30 | NUR ---
ED Nurse Note: pt walked in with daughter from home co headache and epigasteric pain alfd david done pt on monitor vss . blood and urine sent pt medicated will monitor.
[2019-06-17 16:48] LABS: ALANINE AMINOTRANSFERASE 25 U/L (12-78); ALBUMIN 3.8 G/DL (3.4-5.0); ALBUMIN/GLOBULIN RATIO 1.2 (1.0-2.7); ALKALINE PHOSPHATASE 86 U/L (46-116); ASPARTATE AMINO TRANSFERASE 25 U/L (15-37); BILIRUBIN,TOTAL 0.5 MG/DL (0.2-1.0)
[2019-06-17] MEDS ORDERED: LORazepam 1mg tab ORAL ONE (17:00)
--- NOTE | 2019-06-17 17:26 | NUR ---
ED Nurse Note: pt back from CT
--- NOTE | 2019-06-17 18:25 | Diagnostic Imaging Report ---
Indications: Separate Technique: Spiral acquisitions obtained through the brain. Angled axial and coronal 5 x 5 mm slices were reconstructed. Total dose length product 1334 mGycm. CTDI vol(s) 60 mGy. Dose reduction achieved using automated exposure control Comparison: None. Findings: No acute adrenal hemorrhage or edema, mass effect, nor midline shift. There is age-related enlargement of the ventricles and extra-axial CSF spaces. There is periventricular deep white matter low-attenuation, consistent with chronic microvascular ischemic change. Otherwise normal mercado-white differentiation. There is posterior ethmoid and left sphenoid sinus disease noted. Visualized orbits are unremarkable. The mastoids are clear. The calvarium is intact Impression: Chronic and age-related changes Negative for acute intracranial bleed or mass effect Sinus disease This agrees with the preliminary interpretation provided overnight by [employer] teleradiology service. The CT scanner at [facility] is accredited by the [employer] and the scans are performed using protocols designed to limit radiation exposure to as low as reasonably achievable to attain images of sufficient resolution adequate for diagnostic evaluation.
--- NOTE | 2019-06-17 18:37 | Emergency Room Report ---
History of Present Illness General Chief Complaint: Headache Source: Patient Present Illness HPI 84-year-old male history of diabetes, presents with vague complaints of septal headache, nausea vomiting, x5 days no aggravating or relieving factors severity is mild not worse in recumbent position not sudden not the worst headache of his life, no fever no chills no chest pain no shortness of breath, patient also with forgetfulness x2 months, patient also stating that his mind wanders. Patient brought in by daughter for evaluation. Allergies: Coded Allergies: No Known Allergies (Verified Allergy, Unknown, 06/17/07) Patient History Past Medical History: see triage record Reviewed Nursing Documentation: PMH: Agreed; PSxH: Agreed Nursing Documentation-PMH Past Medical History: No History, Except For Hx Cardiac Problems: Yes - high cholesterol Hx Hypertension: Yes Hx Diabetes: Yes Hx Cancer: No Hx Gastrointestinal Problems: Yes Hx Neurological Problems: No Review of Systems All Other Systems: negative except mentioned in HPI Physical Exam Vital Signs Date Time Temp Pulse Resp B/P (MAP) Pulse Ox O2 Delivery O2 Flow Rate FiO2 06/17/19 15:12 98.2 77 20 124/63 (83) 94 Room Air Sp02 EP Interpretation: reviewed, normal General Appearance: well appearing, no apparent distress, alert Head: normocephalic, atraumatic Eyes: bilateral eye PERRL, bilateral eye EOMI ENT: uvula midline, moist mucus membranes Neck: supple, thyroid normal, supple/symm/no masses Respiratory: lungs clear, no respiratory distress, no retraction, no accessory muscle use Cardiovascular #1: normal peripheral pulses, regular rate, rhythm, no edema, no gallop, no murmur Gastrointestinal: non tender, soft, no guarding, no rebound Musculoskeletal: normal inspection Neurologic: alert, oriented x3, application consultant III-XII nml as tested, motor strength/tone normal, cerebellar normal - Finger-nose testing intact, negative Romberg negative, negative pronator drift, normal gait, speech normal, no pronator Psychiatric: mood/affect normal Skin: no rash, warm/dry Medical Decision Making Diagnostic Impression: Primary Impression: Headache Qualified Codes: R51 - Headache Additional Impression: Forgetfulness ER Course Based on the patient's history and physical there is very low clinical suspicion for significant intracranial pathology. There are no red flags of ALONSO, not sudden in onset, not maximal in onset, no acute neurological findings, no fever with head stiffness. Low suspicion for subarachnoid hemorrhage, encephalitis, meningitis. Headache cocktail given with resolution of his symptoms patient feels better Patient with also increasing for forgetfulness differential also includes vascular dementia, regular dementia, counseled patient and family to follow-up with the neurologist for further evaluation and geriatric specialist No acute emergencies at this time disposition home with return precautions Laboratory Tests Test 06/17/19 15:52 06/17/19 15:58 Urine Color Yellow Urine Appearance Clear Urine pH 5 (4.5-8.0) Urine Specific [place] Path 1.025 (1.005-1.035) Urine Protein Negative (NEGATIVE) Urine Glucose (UA) Negative (NEGATIVE) Urine Ketones 1+ (NEGATIVE) H Urine Blood 1+ (NEGATIVE) H Urine Nitrite Negative (NEGATIVE) Urine Bilirubin Negative (NEGATIVE) Urine Urobilinogen Normal MG/DL (0.0-1.0) Urine Leukocyte Esterase Negative (NEGATIVE) Urine RBC 0-2 /HPF (0 - 0) H Urine WBC 0-2 /HPF (0 - 0) Urine Squamous Epithelial Cells Occasional /LPF Urine Bacteria None /HPF (NONE) Urine Mucus Many /LPF (NONE/OCC) H White Blood Count 7.9 K/UL (4.8-10.8) Red Blood Count 4.58 M/UL (4.70-6.10) L Hemoglobin 14.6 G/DL (14.2-18.0) Hematocrit 42.2 % (42.0-52.0) Mean Corpuscular Volume 92 FL (80-99) Mean Corpuscular Hemoglobin 31.9 PG (27.0-31.0) H Mean Corpuscular Hemoglobin Concent 34.7 G/DL (32.0-36.0) Red Cell Distribution Width 10.3 % (11.6-14.8) L Platelet Count 256 K/UL (150-450) Mean Platelet Volume 7.1 FL (6.5-10.1) Neutrophils (%) (Auto) 63.3 % (45.0-75.0) Lymphocytes (%) (Auto) 23.8 % (20.0-45.0) Monocytes (%) (Auto) 8.4 % (1.0-10.0) Eosinophils (%) (Auto) 2.9 % (0.0-3.0) Basophils (%) (Auto) 1.6 % (0.0-2.0) Prothrombin Time 10.7 SEC (9.30-11.50) Prothrombin Time INR 1.0 (0.9-1.1) PTT 28 SEC (23-33) Sodium Level 141 MMOL/L (136-145) Potassium Level 3.9 MMOL/L (3.5-5.1) Chloride Level 106 MMOL/L (98-107) Carbon Dioxide Level 24 MMOL/L (21-32) Anion Gap 11 mmol/L (5-15) Blood Urea Nitrogen 14 mg/dL (7-18) Creatinine 1.0 MG/DL (0.55-1.30) Estimate Glomerular Filtration Rate mL/min (>60) Glucose Level 133 MG/DL (74-106) H Calcium Level 9.2 MG/DL (8.5-10.1) Total Bilirubin 0.5 MG/DL (0.2-1.0) Aspartate Amino Transferase (AST) 25 U/L (15-37) Alanine Aminotransferase (ALT) 25 U/L (12-78) Alkaline Phosphatase 86 U/L (46-116) Troponin I 0.000 ng/mL (0.000-0.056) Total Protein 7.1 G/DL (6.4-8.2) Albumin 3.8 G/DL (3.4-5.0) Globulin 3.3 g/dL Albumin/Globulin Ratio 1.2 (1.0-2.7) Lipase 239 U/L (73-393) EKG Diagnostic Results EKG Time: 15:49 EP Interpretation: NSR, rate 25, QTc 451, no acute ST elevations, left axis deviation Rhythm Strip Diag. Results Rhythm Strip Time: 18:34 EP Interpretation: yes Rate: 67 Rhythm: NSR, no PVC's, no ectopy Chest X-Ray Diagnostic Results Chest X-Ray Diagnostic Results : Chest X-Ray Ordered: Yes # of Views/Limited/Complete: 1 View Indication: Other - Headache EP Interpretation: Yes Interpretation: no consolidation, no effusion, no pneumothorax, no acute cardiopulmonary disease Impression: No acute disease Electronically Signed by: Fady Maza MD CT/MRI/US Diagnostic Results CT/MRI/US Diagnostic Results : Impression Preliminary Findings Only See Final Report For Complete Findings CT HEAD Without Contrast: No acute intracranial hemorrhage or cortical ischemia. No skull fracture. Chronic ischemic changes. Ethmoid/sphenoid sinus mucosal thickening. Radiologist: Marcos Kingsley M.D. Study ready at 17:50 and initial results transmitted at 18:25 Last Vital Signs Date Time Temp Pulse Resp B/P (MAP) Pulse Ox O2 Delivery O2 Flow Rate FiO2 06/17/19 16:24 98.2 76 12 124/65 96 Room Air Disposition: HOME, SELF-CARE Condition: Stable Referrals: Erwin Calderon MD (PCP) [facility] Patient Instructions: Confusion, Dementia, General Headache Without Cause Additional Instructions: The patient was provided with discharge instructions, notified to follow-up with a primary care doctor and or specialist in the next 24-48 hours, and to return to the ED if they have worsening of their symptoms. Please note that this report is being documented using DRAGON technology. This can lead to erroneous entry secondary to incorrect interpretation by the dictating instrument. Fady Maza MD Jun 17, 2019 18:37
[2019-06-17 19:19] VITALS: BP 125/56
--- NOTE | 2019-06-17 19:21 | NUR ---
ED Nurse Note: Pt cleared by health care Provider for discharge. DC instructions was given and explained to pt and daughter both verbalized understanding of teachings. All medical deviecs such as ID band removed. Pt is AAO x4, ambulatory and left with all personal belongings.
== END 2019-06-17 19:22 | disposition home or self-care (01) ==
LOC: EMR 15:43
DX: R51 Headache (principal); R41.3 Other amnesia; I10 Essential (primary) hypertension; E11.9 Type 2 diabetes mellitus without complications; E78.00 Pure hypercholesterolemia, unspecified; R06.00 Dyspnea, unspecified
CPT/HCPCS: 36415; 70450; 71045; 80053; 81003; 83690; 84484; 85025; 85610; 85730; 93005; 96361; 96374; 96375; 99284; J0780; J1100; J1200

== ENCOUNTER 2019-07-17 09:50 | Outpatient (CLI) | payer MEDICARE, OTHER ==
[~2019-07-17 09:50] MED LIST changes: +DITROPAN10 MG ORAL; +MECLIZINE HCL12.5 MG ORAL
--- NOTE | 2019-07-17 10:30 | Diagnostic Imaging Report ---
Indication: Dyspnea Comparison: 06/17/2019 2 views of the chest obtained. Findings: Cardiomediastinal silhouette and pulmonary vascularity are within normal limits for age. Aorta is ectatic. The diaphragmatic contour is smooth and costophrenic angles are sharp. No pleural effusions are identified. The bones are unremarkable. Impression: No acute disease
== END 2019-07-17 11:50 | disposition home or self-care (01) ==
LOC: RAD 09:50
DX: Z01.818 Encounter for other preprocedural examination (principal); I10 Essential (primary) hypertension; R06.00 Dyspnea, unspecified
CPT/HCPCS: 71046

== ENCOUNTER 2019-08-03 13:11 | Outpatient (CLI) | payer MEDICARE, OTHER ==
--- NOTE | 2019-08-03 13:48 | General Progress Note ---
Assessment/Plan Problem List: (1) HP gastritis (2) muliple colon polyps (3) Abdominal pain ICD Codes: R10.9 - Unspecified abdominal pain SNOMED: 36416384 (4) Weight loss ICD Codes: R63.4 - Abnormal weight loss SNOMED: 13708985, 474519375 (5) Nausea ICD Codes: R11.0 - Nausea SNOMED: 782650514 Assessment/Plan: he is going for CT tomorrow plan EGD next week Subjective ROS Limited/Unobtainable: Yes Allergies: Coded Allergies: No Known Allergies (Verified Allergy, Unknown, 06/17/07) Objective General Appearance: alert EENT: normal ENT inspection Neck: supple Cardiovascular: normal rate Respiratory/Chest: decreased breath sounds Abdomen: normal bowel sounds, non tender, soft Extremities: non-tender Nael Rivera MD Aug 03, 2019 13:48
[2019-08-03 15:51] VITALS: BP 143/79
[2019-08-04] MEDS ORDERED: TRAMADOL HCL50 MG ORAL (08:35)
[2019-08-04] MEDS ORDERED: PANTOPRAZOLE SO40 MG ORAL (08:35)
[2019-08-04] MEDS ORDERED: NORCO 10-325 T1 EACH ORAL (08:35)
== END 2019-08-03 15:11 | disposition home or self-care (01) ==
LOC: PAN 13:11
DX: K29.70 Gastritis, unspecified, without bleeding (principal); K63.5 Polyp of colon; R10.9 Unspecified abdominal pain; R11.0 Nausea

== ENCOUNTER → 2019-08-04 | Outpatient (CLI) | payer MEDICARE, OTHER ==
[~2019-08-04] MED LIST changes: +NORCO 10-325 T1 EACH ORAL; +PANTOPRAZOLE SO40 MG ORAL; +TRAMADOL HCL50 MG ORAL
--- NOTE | 2019-08-04 15:07 | Diagnostic Imaging Report ---
INDICATION: Weight loss chest and abdominal pain TECHNIQUE: Continuous helical transaxial imaging of the chest, abdomen and pelvis was obtained from the lung bases to the pubic symphysis during intravenous contrast administration. Multiple phases of enhancement obtained. Coronal 2-D reformats were also obtained. Study obtained in a Siemens sensation [address] Automatic Exposure Control was utilized. Total Dose length Product (DLP): 1997.[address] Dose Index Volume (CTDIvol): 139.4 mGy COMPARISON: None FINDINGS: CT CHEST: There is no lung mass identified. There is a tiny 5 mm density at the peripheral margin of the major fissure in the right lung. There is no consolidation. No pleural or pericardial effusion identified. No adenopathy seen. The aorta is mildly calcified. Axilla appear clear. CT ABDOMEN & PELVIS: Cholecystectomy noted. The liver and spleen are unremarkable. Pancreas is unremarkable. Both kidneys enhance normally. There is no hydronephrosis. There is no adrenal mass. Appendix is normal. Few diverticula noted in the sigmoid colon. No evidence of acute diverticulitis. Moderate calcification of aorta demonstrated. Bilateral stents demonstrated within the iliac veins. Urinary bladder is unremarkable. There is narrowing of intervertebral discs and accompanying endplate osteophyte formation. Hypertrophied facet joints also demonstrated. IMPRESSION: No evidence of malignancy on the basis of this study. Atherosclerotic vascular disease Degenerative spondylosis. Bilateral common iliac venous stents. Diverticulosis of the colon. No evidence of diverticulitis. The CT scanner at [facility] is accredited by the [employer] and the scans are performed using dose optimization techniques as appropriate to a performed exam including Automatic Exposure control.
== END | disposition home or self-care (01) ==
LOC: CAT 08:17
DX: R10.9 Unspecified abdominal pain (principal); R07.9 Chest pain, unspecified; R63.4 Abnormal weight loss; M47.9 Spondylosis, unspecified; K57.90 Diverticulosis of intestine, part unspecified, without perforation or abscess without bleeding
CPT/HCPCS: 71260; 74177; Q9967

== ENCOUNTER 2019-08-12 07:40 | Day surgery (SDC) | payer MEDICARE, OTHER ==
[~2019-08-12] VITALS: Ht 167.6 cm; Wt 77.1 kg
[2019-08-12] VITALS (7 sets, daily range): BP systolic 113–142; BP diastolic 65–76
[~2019-08-12 07:40] MED LIST changes: +LR 1000ml 1,000 ML IVLG SCH
--- NOTE | 2019-08-12 09:25 | Pre-Procedure Note/Attestation ---
Pre-Procedure Note/Attestation Complete Prior to Procedure Planned Procedure: not applicable Procedure Narrative: egd Indications for Procedure Pre-Operative Diagnosis: abd pain Attestation I attest that I discussed the nature of the procedure; its benefits; risks and complications; and alternatives (and the risks and benefits of such alternatives ), prior to the procedure, with the patient (or the patient's legal practice representative). I attest that, if there was a reasonable possibility of needing a blood transfusion, the patient (or the patient's legal practice representative) was given the [facility] standardized written summary, pursuant to the Marek Jean Blood Safety Act ([place] Health and Safety Code # 1645, as amended). I attest that I re-evaluated the patient just prior to the surgery and that there has been no change in the patient's H&P, except as documented below: Nael Rivera MD Aug 12, 2019 09:25
--- NOTE | 2019-08-12 09:25 | Short Stay Surgery H&P ---
History of Present Illness History of Present Illness Chief Complaint see recent office note HPI Osmar Horton is a 84 year old male who was admitted on for Abdominal Pain Patient History Allergies: Coded Allergies: No Known Allergies (Verified Allergy, Unknown, 06/17/07) Medication History Scheduled Aspirin (Aspirin EC), 81 MG ORAL DAILY, (Reported) Enalapril Maleate* (Enalapril Maleate*), 20 MG PO Q12HR, (Reported) Metformin Hcl* (Metformin Hcl*), 1,000 MG ORAL DAILY, (Reported) Oxybutynin Chloride (Oxybutynin Chloride), 5 MG ORAL BID, (Reported) Pantoprazole* (Pantoprazole*), 40 MG ORAL DAILY, (Reported) Simvastatin (Zocor), 10 MG PO QHS, (Reported) Scheduled PRN Hydrocodone Bit/Acetaminophen 10-325* ([place] 10-325*), 1 TAB ORAL Q6H PRN for For Pain, (Reported) Tramadol Hcl* (Ultram*), 50 MG ORAL Q6H PRN for For Pain, (Reported) Physical Exam Vital Signs Last Vital Signs Date Time Temp Pulse Resp B/P (MAP) Pulse Ox O2 Delivery O2 Flow Rate FiO2 08/12/19 08:52 Room Air 08/12/19 08:42 97.4 64 18 119/65 96 Plan Attestation Are the patient's medical conditions optimized for surgery? Nael Rivera MD Aug 12, 2019 09:25
[2019-08-12] MEDS ORDERED: Propofol 200mg/20ml IV ONE (09:30)
[2019-08-12] MEDS ORDERED: LR 1000ml ONE (09:30)
[2019-08-12] MEDS ORDERED: fentaNYL 100 mcg/2 mL IV ONE (09:30)
--- NOTE | 2019-08-12 09:43 | Endoscopy Procedure Note ---
Endoscopy Procedure Note General Indication for Procedure: abd pain Procedures Performed: EGD Operative Findings/Diagnosis: gastrtis Specimen: yes Pt Tolerated Procedure Well: Yes Estimated Blood Loss: none Anesthesia Anesthesiologist: shawn Anesthesia: MAC Inserted Devices Implant(s) used?: No GI Core Measures 50 yrs or older w/o bx or poly: Not Applicable 10yrs. F/U recommended: Not Applicable Nael Rivera MD Aug 12, 2019 09:43
--- NOTE | 2019-08-12 09:53 | Anethesia Preoperative Eval ---
Anesthesia Pre-op PMH/ROS General Date of Evaluation: Aug 12, 2019 Time of Evaluation: 09:25 Anesthesiologist: Peter ASA Score: ASA 2 Mallampati Score Class I : Soft palate, uvula, fauces, pillars visible Class II: Soft palate, uvula, fauces visible Class III: Soft palate, base of uvula visible Class IV: Only hard plate visible Mallampati Classification: Class II Surgeon: Nicole Diagnosis: Abdominal pain Surgical Procedure: EGD Anesthesia History: none Family History: no anesthesia problems Allergies: Coded Allergies: No Known Allergies (Verified Allergy, Unknown, 06/17/07) Medications: see eMAR Patient NPO?: Yes Past Medical History Cardiovascular: Reports: HTN - stable; Denies: CAD, MO, valve dz, arrhythmia, other Pulmonary: Denies: asthma, COPD, [place], other Gastrointestinal/Genitourinary: Reports: GERD; Denies: CRI, ESRD, other Neurologic/Psychiatric: Denies: dementia, CVA, depression/anxiety, TIA, other Endocrine: Reports: DM - on pills; Denies: hypothyroidism, steroids, other HEENT: Denies: cataract (L), cataract (R), glaucoma, [place] (L), [place] (R), other Hematology/Immune: Denies: anemia, DVT, bleeding disorder, other Musculoskeletal/Integumentary: Reports: OA; Denies: RA, DJD, DDD, edema, other Other: other PMH Narrative: as above PSxH Narrative: See H&P Anesthesia Pre-op Phys. Exam Physician Exam Last Vital Signs Date Time Temp Pulse Resp B/P (MAP) Pulse Ox O2 Delivery O2 Flow Rate FiO2 08/12/19 08:52 Room Air 08/12/19 08:42 97.4 64 18 119/65 96 Constitutional: NAD Neurologic: CN 2-12 intact Cardiovascular: RRR, no M/R/G Respiratory: CTA Gastrointestinal: S/NT/ND, other Airway Exam Mallampati Score: Class II MO: limited Neck: stiff ROM: limited Teeth: missing Dentures: no upper, no lower Anesthesia Pre-op A/P Studies Pre-op Studies: EKG - SR Risk Assessment & Plan Assessment: ASA 2 Plan: MAC Status Change Before Surgery: Erick Rollins MD Aug 12, 2019 09:53
--- NOTE | 2019-08-12 09:55 | Immediate Post-Op Evaluation ---
Immediate Post-Op Evalulation Immediate Post-Op Evalulation Procedure: EGD with Bx Date of Evaluation: Aug 12, 2019 Time of Evaluation: 09:54 IV Fluids: 250 Blood Products: none Estimated Blood Loss: none Urinary Output: none Blood Pressure Systolic: 126 Blood Pressure Diastolic: 78 Pulse Rate: 64 Respiratory Rate: 20 O2 Sat by Pulse Oximetry: 98 Pain Score (1-10): 1 Nausea: No Vomiting: No Complications none Patient Status: awake, patent, none Hydration Status: adequate Erick Green MD Aug 12, 2019 09:55
--- NOTE | 2019-08-12 11:19 | 48 Hour Post Anesthesia Eval ---
Post Anesthesia Evaluation Procedure: EGD with Bx Date of Evaluation: Aug 12, 2019 Time of Evaluation: 11:18 Blood Pressure Systolic: 142 0: 76 Pulse Rate: 68 Respiratory Rate: 18 Temperature (Fahrenheit): 97.6 O2 Sat by Pulse Oximetry: 98 Airway: patent Nausea: No Vomiting: No Pain Intensity: 1 Hydration Status: adequate Cardiopulmonary Status: stable Mental Status/LOC: patient returned to baseline Follow-up Care/Observations: n/a Post-Anesthesia Complications: none Follow-up care needed: ready to discharge Erick Green MD Aug 12, 2019 11:19
--- NOTE | 2019-08-12 14:45 | Procedure Note ---
DATE OF PROCEDURE: 08/12/2019 SURGEON: Nael Rivera M.D. PROCEDURE: Upper endoscopy with biopsy. ANESTHESIA: Per Dr. Green. INSTRUMENT: Olympus adult flexible upper endoscope. INDICATION: Abdominal pain. REASON FOR PROCEDURE: The procedure, risks, benefits, and possible consequences, including hemorrhage, aspiration, perforation and infection, and alternative treatments, were explained to the patient/legal guardian by Dr. Nael Rivera and the patient/legal guardian understood and accepted these risks. PROCEDURE IN DETAIL: After informed consent was obtained and the patient was adequately sedated, Olympus upper endoscope was advanced from mouth into the second portion of the duodenum and retroflexion was performed in the stomach. GE junction was found to be about 36 cm from the incisors. No evidence of any esophagitis. No esophageal mass. In the stomach, there was diffuse random gastritis. Biopsy from antrum was obtained to rule out H. pylori infection. The rest of upper endoscopic examination was grossly within normal limits. The patient tolerated the procedure very well without any complication. SUMMARY OF FINDINGS: Gastritis, otherwise normal upper endoscopic examination. RECOMMENDATIONS: Follow up biopsy results and treat accordingly. The patient's recent CT scan was reviewed with him. The patient to follow in the office for further management. Nael Rivera M.D. DR: KEHINDE JOB#: [id number] CC:
--- NOTE | 2019-08-13 12:51 | Cardiology Report ---
APPROVED REPORT EKG Measurement Heart [id number] Sinusl rhythm Nonspecific ST abnormality Abnormal ECG
== END 2019-08-12 10:35 | disposition home or self-care (01) ==
LOC: GAS 07:40
DX: R10.9 Unspecified abdominal pain (principal); K29.70 Gastritis, unspecified, without bleeding; Z79.82 Long term (current) use of aspirin; Z79.84 Long term (current) use of oral hypoglycemic drugs; I10 Essential (primary) hypertension; K21.9 Gastro-esophageal reflux disease without esophagitis; M19.90 Unspecified osteoarthritis, unspecified site
CPT/HCPCS: 43239; 82962; 93005; J2704; J3010; J7120; 94003; 94150

== ENCOUNTER 2019-09-14 08:48 | Emergency (ER) | payer MEDICARE, OTHER ==
[~2019-09-14] VITALS: Ht 167.6 cm; Wt 77.1 kg
[~2019-09-14 08:48] MED LIST changes: -LR 1000ml 1,000 ML IVLG SCH
[2019-09-14 09:00] VITALS: BP 133/68
--- NOTE | 2019-09-14 09:00 | NUR ---
ED Nurse Note: Pt ambulated to ED with c/o elevated BP. Triage BP went down to 154/84. Placed pt on bed and gown; hooked to bus driver/monitor. Latest BP: 133/68. Pt is calm and cooperative; fluent in [place]ian. Will continue to monitor pt.
--- NOTE | 2019-09-14 09:15 | NUR ---
ED Nurse Note: Pt still on stable condition. Latest accucheck: 131mg/dl. Able to obtain blood specimen; sent to labs. IV site on RT AC with 20G; intact and patent. Placed bed on low position. VSS.
--- NOTE | 2019-09-14 09:34 | NUR ---
ED Nurse Note: Pt verbally denies dizziness as of now per assessment. Per ERMD, hold meds for now; continue close monitoring pt's BP.
[2019-09-14 09:40] LABS: BASOPHILS % (AUTO) 1.2 % (0.0-2.0); EOSINOPHILS % (AUTO) 5.4 % (0.0-3.0); HEMATOCRIT 43.4 % (42.0-52.0); HEMOGLOBIN 14.8 G/DL (14.2-18.0); LYMPHOCYTES % (AUTO) 24.4 % (20.0-45.0); MEAN CORPUSCULAR VOLUME 92 FL (80-99); MONOCYTES % (AUTO) 9.2 % (1.0-10.0); NEUTROPHILS % (AUTO) 59.8 % (45.0-75.0); PLATELET COUNT 232 K/UL (150-450); RED BLOOD COUNT 4.71 M/UL (4.70-6.10); RED CELL DISTRIBUTION WIDTH 11.5 % (11.6-14.8); WHITE BLOOD COUNT 5.7 K/UL (4.8-10.8)
--- NOTE | 2019-09-14 09:53 | NUR ---
ED Nurse Note: X-ray on bedside.
[2019-09-14 10:00] VITALS: BP 134/63
[2019-09-14 10:01] LABS: ANION GAP 11 mmol/L (5-15); BLOOD UREA NITROGEN 15 mg/dL (7-18); CALCIUM 8.6 MG/DL (8.5-10.1); CARBON DIOXIDE 25 MMOL/L (21-32); CHLORIDE 107 MMOL/L (98-107); CREATININE 0.7 MG/DL (0.55-1.30); POTASSIUM 3.9 MMOL/L (3.5-5.1); SODIUM 143 MMOL/L (136-145)
--- NOTE | 2019-09-14 10:12 | Emergency Room Report ---
History of Present Illness General Chief Complaint: Hypertension Source: Patient Present Illness HPI 84-year-old male presents to emergency room with elevated blood pressure this morning with systolic blood pressure in the 200s. Patient states that he had a history of diabetes hypertension hypercholesterolemia. He takes simvastatin, enalapril and metformin. He is compliant with his medications. He states when his blood pressure is high he takes an extra dose of his enalapril. He took 3 tablets yesterday due to high blood pressure. His normal morning dose for enalapril is at 10 AM. He reported while he was resting he took his blood pressure it was initially 180 systolic and then worsened to 200. He denied any associated symptoms such as nausea, chest pain, shortness of breath, diaphoresis , vomiting. He denies any headaches or symptoms at this time. Patient denies any drug use. Allergies: Coded Allergies: No Known Allergies (Verified Allergy, Unknown, 06/17/07) Nursing Documentation-[facility] Past Medical History: No History, Except For Hx Hypertension: Yes Hx Diabetes: Yes Hx Cancer: No Hx Gastrointestinal Problems: Yes Hx Neurological Problems: No Review of Systems Constitutional: Denies: chills, fever Respiratory: Denies: cough, shortness of breath Cardiovascular: Denies: chest pain, palpitations Gastrointestinal: Denies: diarrhea, vomiting Genitourinary: Denies: hematuria, pain Musculoskeletal: Denies: joint swelling Skin: Denies: rash, lesions Neurological: Denies: headache, dizziness Physical Exam Vital Signs Date Time Temp Pulse Resp B/P (MAP) Pulse Ox O2 Delivery O2 Flow Rate FiO2 09/14/19 08:57 98.2 79 16 152/81 (104) 93 Room Air Sp02 EP Interpretation: reviewed General Appearance: well appearing, no apparent distress, non-toxic Head: normocephalic, atraumatic Eyes: bilateral eye normal inspection ENT: hearing grossly normal, EOM grossly intact, moist mucus membranes Neck: supple Respiratory: lungs clear, normal breath sounds, no respiratory distress, speaking full sentences Cardiovascular #1: regular rate, rhythm, normal capillary refill Cardiovascular #2: 2+ radial (R), 2+ radial (L) Gastrointestinal: soft, non-distended Rectal: deferred Musculoskeletal: moves extm spontaneously, no lower extremity edema Neurologic: grossly normal Psychiatric: mood/affect normal Skin: warm/dry, normal turgor Medical Decision Making Diagnostic Impression: Primary Impression: Hypertension ER Course 84-year-old male presents to emergency room with elevated blood pressure at home. Is compliant with his medications. Reported elevated yesterday when took an extra dose of hypertensive medication. He did not take NSAIDs. No physical complaints Vital signs show normotensive blood pressure at this time Exam within normal limits EKG with left axis deviation otherwise normal limits Perform lab testing which shows no signs of kidney disease, or elevated troponin. Patient is stable for outpatient follow-up and discharge. Patient recommended to adjust blood pressure medications as needed with primary care doctor. Advised return to emergency room with worsening or new symptoms. EKG Diagnostic Results EKG Time: 09:23 Rate: normal Rhythm: NSR ST Segments: no acute changes Other Impression Rate of 70, no ST changes consistent with ischemia, left axis deviation Chest X-Ray Diagnostic Results Chest X-Ray Diagnostic Results : Chest X-Ray Ordered: Yes # of Views/Limited/Complete: 1 View Indication: Other - Hypertension EP Interpretation: Yes Interpretation: no consolidation, no effusion, no pneumothorax, no acute cardiopulmonary disease Impression: No acute disease Last Vital Signs Date Time Temp Pulse Resp B/P (MAP) Pulse Ox O2 Delivery O2 Flow Rate FiO2 09/14/19 09:00 98.2 72 20 133/68 99 Room Air Disposition: HOME, SELF-CARE Condition: Stable Patient Instructions: Hypertension Additional Instructions: Please return to emergency room if any new or worsening symptoms. Prudencio Del Angel M.D. Sep 14, 2019 10:12
--- NOTE | 2019-09-14 10:31 | Diagnostic Imaging Report ---
Indication: Chest pain Technique: One view of the chest Comparison: 07/17/2019 Findings: Inspiration is suboptimal. Left hemidiaphragm is mildly elevated. Lungs pleural spaces are clear. The heart size is upper limits normal. The aorta is tortuous. Findings are overall unchanged allowing for differences in degree of inspiration Impression: No acute process
[2019-09-14 10:36] LABS: ALANINE AMINOTRANSFERASE 24 U/L (12-78); ALBUMIN 3.9 G/DL (3.4-5.0); ALBUMIN/GLOBULIN RATIO 1.2 (1.0-2.7); ALKALINE PHOSPHATASE 91 U/L (46-116); ASPARTATE AMINO TRANSFERASE 25 U/L (15-37); BILIRUBIN,TOTAL 0.6 MG/DL (0.2-1.0); CKMB 1.8 NG/ML (0.0-3.6); CREATINE KINASE 126 U/L (26-308)
[2019-09-14 10:45] VITALS: BP 122/109
--- NOTE | 2019-09-14 10:45 | NUR ---
ER DISCHARGE NOTE: Pt is cleared to be discharged per ERMD. Pt is AOx4, VSS; on RA. pt was given dc and prescription instructions, pt was able to verbalize understanding, pt id band and iv site removed without complications. pt is able to ambulate with steady gait. pt took all belongings.
== END 2019-09-14 10:45 | disposition home or self-care (01) ==
LOC: EMR 09:30
DX: I10 Essential (primary) hypertension (principal); E11.9 Type 2 diabetes mellitus without complications
CPT/HCPCS: 71045; 80053; 82550; 82553; 82962; 83880; 84484; 85025; 93005; 99283

== ENCOUNTER 2020-09-15 13:59 | Outpatient (CLI) | payer MEDICARE, OTHER ==
[2020-09-15 14:11] VITALS: BP 107/59
[2020-09-15] MEDS ORDERED: LEXAPRO10 MG ORAL (14:11)
[2020-09-15] MEDS ORDERED: OMEPRAZOLE40 M1 ORAL (14:11)
--- NOTE | 2020-09-15 14:42 | General Progress Note ---
Subjective ROS Limited/Unobtainable: Yes Allergies: Coded Allergies: No Known Allergies (Verified Allergy, Unknown, 06/17/07) Objective Last 24 Hour Vital Signs Date Time Temp Pulse Resp B/P (MAP) Pulse Ox O2 Delivery O2 Flow Rate FiO2 09/15/20 14:11 97.5 82 16 107/59 96 General Appearance: no apparent distress EENT: normal ENT inspection Neck: supple Cardiovascular: normal rate Respiratory/Chest: decreased breath sounds Abdomen: normal bowel sounds, non tender, soft Extremities: non-tender Assessment/Plan Assessment/Plan: Assessment/Plan Problem List: (1) HP gastritis (2) muliple colon polyps (3) Abdominal pain ICD Codes: R10.9 - Unspecified abdominal pain SNOMED: 35620571 (4) Weight loss ICD Codes: R63.4 - Abnormal weight loss SNOMED: 85242007, 028927353 (5) Nausea ICD Codes: R11.0 - Nausea SNOMED: 079893372 Assessment/Plan: s/p CT and EGD omeprazole 40 mg po daily add Nael Morgan MD Sep 15, 2020 14:41
== END 2020-09-15 15:59 | disposition home or self-care (01) ==
LOC: PAN 13:59
DX: R11.0 Nausea (principal); R10.9 Unspecified abdominal pain; K29.70 Gastritis, unspecified, without bleeding; B96.81 Helicobacter pylori [H. pylori] as the cause of diseases classified elsewhere; K63.5 Polyp of colon; R63.4 Abnormal weight loss
CPT/HCPCS: 99212